=== PATIENT | male | born 1995 | race Caucasian/White ===

== ENCOUNTER 2016-05-10 21:56 | Emergency (ER) | payer OTHER ==
[2016-05-10] MEDS ORDERED: NORCO, ANEXSIA 5/325MG TABLET (HYDROcodone/ACETAMINOPHEN) As Ordered ONE (22:40)
--- NOTE | 2016-05-10 23:37 | EDDOCDS ---
Physician Documentation [facility] Name: Parvez Sorto Age: 20 yrs Sex: Male : 1995 Arrival Date: 05/10/2016 Time: 21:56 Bed TR2 Private MD: GABY Stephen Disposition: 05/10/16 23:22 Discharged to Home/Self Care. Impression: Contusion of right great toe without damage to nail, Sprain of ligaments of thoracic spine. - Condition is Stable. - Discharge Instructions: Back Pain, Adult, Contusion. - Prescriptions for Ibuprofen 600 mg Oral Tablet - take 1 tablet by ORAL route every 6 hours As needed take with food; 30 tablet. Cyclobenzaprine 10 mg Oral Tablet - take 1 tablet by ORAL route 3 times per day As needed; 15 tablet. - Medication Reconciliation, Local Pharmacy Hours form. - Follow up: GABY Stephen; When: 4 - 5 days; Reason: Recheck today's complaints, Continuance of care. - Problem is new. - Symptoms are unchanged. Historical: - Allergies: no known allergies; - Home Meds: 1. none - PMHx: none; - PSHx: none; - Social history: Smoking status: Patient states was never smoker of tobacco. Patient/guardian denies using alcohol, street drugs, No barriers to communication noted, The patient speaks fluent Mongolian, Speaks appropriately for age. - Family history: No immediate family members are acutely ill. - : The pt / caregiver states he / she is not on anticoagulants. Home medication list is obtained from the patient. - Exposure Risk Screening:: None identified. Vital Signs: 05/10 21:57 BP 148 / 76; Pulse 86; Resp 16; Temp 96.0(T); Pulse Ox 97% on R/A; Weight 84.37 kg / lr2 186 lbs (R); Height 5 ft. 7 in. (170.18 cm) (R); Pain 5/10; 23:26 BP 117 / 68; Pulse 63; Resp 18; Temp 99.3(TE); Pulse Ox 98% on R/A; Pain 5/10; cristian 21:57 Body Mass Index 29.13 (84.37 kg, 170.18 cm) lr2 MDM: 22:37 HYDROcodone-acetaminophen 5 mg-325 mg 1 tabs PO once ordered. ke 22:37 Spine, Thoracic 3 Views Ordered. EDMS 22:37 Spine. Lumbosacral, Complete Ordered. EDMS 22:38 Toes Ordered. EDMS Administered Medications: 22:42 Drug: HYDROcodone-acetaminophen 1 tabs [hydrocodone 5 mg-acetaminophen 325 mg tablet (1 mv5 tabs)] Route: PO; Signatures: Dispatcher [employer] EDMS Parag Sauceda RN RN cz Elsner, Karl, FNP BOTTLE CLEANER Augusta Hobson RN RN ttb Vannedery, Megan, RN RN mv5 MTDD
--- NOTE | 2016-05-10 23:37 | EDDOCDS ---
Nurse's Notes [facility] Name: Parvez Sorto Age: 20 yrs Sex: Male : 1995 Arrival Date: 05/10/2016 Time: 21:56 Bed TR2 Private MD: Hailee [facility] Diagnosis: Contusion of right great toe without damage to nail;Sprain of ligaments of thoracic spine Presentation: 05/10 22:02 Presenting complaint: Patient states: dog tripped pt and pt fell down 10 stairs about ttb 30 min ago. Right great toe pain and lower back pain. Denies LOC or head injury. Adult Sepsis Screening: The patient does not have new or worsening altered mentation. Patient's respiratory rate is less than 22. Systolic blood pressure is greater than 100. Patient has a qSOFA score of 0- Negative Sepsis Screen. Suicide/Homicide risk assessment- the patient denies having any suicidal and/or homicidal ideations and does not present with any other emotional, behavioral or mental health complaints. Status: The patient is an active duty customer service rep. Transition of care: patient was not received from another setting of care. 22:02 Acuity: LAKSHMI Level 4 ttb 22:02 Method Of Arrival: Walkin/Carried/Asstd ttb Triage Assessment: 22:04 General: Appears in no apparent distress, well nourished, well groomed, Behavior is ttb appropriate for age, cooperative, pleasant. Pain: Location: lower back and great toe 5/10. Pt Declines HIV testing. Neurological: Level of Consciousness is awake, alert. Cardiovascular: Chest pain is denied. Respiratory: No deficits noted. Airway is patent Denies cough, shortness of breath. GI: Denies nausea, vomiting, pain. Derm: Skin is normal. Musculoskeletal: Range of motion intact in all extremities. Reports pain in lower back and right great toe. Injury Description: pt fell down 10stairs. Historical: - Allergies: no known allergies; - Home Meds: 1. none - PMHx: none; - PSHx: none; - Social history: Smoking status: Patient states was never smoker of tobacco. Patient/guardian denies using alcohol, street drugs, No barriers to communication noted, The patient speaks fluent Tajik, Speaks appropriately for age. - Family history: No immediate family members are acutely ill. - : The pt / caregiver states he / she is not on anticoagulants. Home medication list is obtained from the patient. - Exposure Risk Screening:: None identified. Screenin:43 Screening information is obtained from the patient. Fall risk: No risks identified. mv5 Assistance ADL's: requires no assistance with activities of daily living. Abuse/DV Screen: The patient / caregiver reports he/she is: not in a situation that causes fear, pain or injury. Nutritional screening: No deficits noted. Advance Directives: There is no active DNR order. home support is adequate. Assessment: 22:43 General: Appears in no apparent distress. Pain: Location: dorsum of right foot Pain mv5 currently is 6 out of 10 on a pain scale. Neurological: Level of Consciousness is awake, alert, Oriented to person, place, time. Cardiovascular: Capillary refill < 3 seconds. Respiratory: Airway is patent Respiratory effort is even, unlabored, Respiratory pattern is regular, symmetrical. Derm: Skin is pink, warm & dry. 22:44 General: Pt to xray with design tech.. mv5 23:08 General: Appears in no apparent distress. Respiratory: Airway is patent Respiratory mv5 effort is even, unlabored, Respiratory pattern is regular, symmetrical. Derm: Skin is pink, warm & dry. Vital Signs: 21:57 BP 148 / 76; Pulse 86; Resp 16; Temp 96.0(T); Pulse Ox 97% on R/A; Weight 84.37 kg (R); lr2 Height 5 ft. 7 in. (170.18 cm) (R); Pain 5/10; 23:26 BP 117 / 68; Pulse 63; Resp 18; Temp 99.3(TE); Pulse Ox 98% on R/A; Pain 5/10; cristian 21:57 Body Mass Index 29.13 (84.37 kg, 170.18 cm) lr2 Vitals: 21:57 Log In Time: May 10, 2016 at 21:56. lr2 ED Course: 21:57 Patient visited by Neetu Badillo. lr2 21:57 Patient moved to Waiting lr2 21:58 Hailee [facility] is Private Physician. lr2 21:59 Patient moved to Pre RCE lr2 22:03 Triage Initiated ttb 22:06 Patient visited by Augusta Faria RN. ttb 22:31 Lana Carpio,RN is Primary Nurse. ms18 22:31 Darin Anderson FNP [facility]. ke 22:31 Patient visited by Darin Anderson FNP. ke 22:31 Patient visited by Darin Anderson FNP. ke 22:31 Patient moved to 11 ms18 22:43 The patient / caregiver is instructed regarding the plan of care and ED course. mv5 22:43 No IV's were initiated during this patient's visit. mv5 23:09 Patient visited by Lana Carpoi,MINDY. mv5 23:22 Hailee [facility] is Referral Physician. ke 23:26 Patient visited by Merced Reyes PCA. cristian 23:36 Patient moved to [facility] 23:36 No procedures done that require assistance. cz Administered Medications: 22:42 Drug: HYDROcodone-acetaminophen 1 tabs [hydrocodone 5 mg-acetaminophen 325 mg tablet (1 mv5 tabs)] Route: PO; Order Results: There are currently no results for this order. Outcome: 23:22 Discharge ordered by Provider. ke 23:36 Discharge Assessment: Patient awake, alert and oriented x 3. No cognitive and/or cz functional deficits noted. Patient verbalized understanding of disposition instructions. patient administered narcotics - no. The following High Risk Discharge criteria are identified: None. Discharged to home ambulatory, with significant other. Condition: stable. Discharge instructions given to patient, Instructed on discharge instructions, follow up and referral plans. medication usage, Demonstrated understanding of instructions, medications, Pt was receptive of discharge instructions/ teaching. Prescriptions given X 2. No special radiology studies were completed. Property :Personal belongings accompany Pt. 23:36 Patient left the ED. cz Signatures: Parag Sauceda, RN Darin Carroll FNP FNP Merced Reyes PCA COAL INSPECTOR Augusta Perla RN RN ttShey Dorsey RN RN ms18 Justino Neetu 2 Lana Carpio,MINDY GUILLEN [facility] MTDD
--- NOTE | 2016-05-11 00:51 | REP ---
Clinical: Trauma. Technique: AP, lateral, bilateral oblique views right first toe . Findings: The osseous structures and joint spaces are intact and normal. There is no evidence for acute fracture or dislocation. Surrounding soft tissues are unremarkable. No subcutaneous emphysema or radiodense foreign body. Impression: No acute fracture or dislocation. Signed by Edison Jarrett MD 05/11/2016 12:41 A
--- NOTE | 2016-05-11 00:51 | REP ---
Clinical: thoracic pain. Trauma. Technique: AP, lateral, and swimmers views. Findings: Alignment and kyphosis is maintained. Vertebral bodies intact. No acute fracture / compression injury or subluxation. No degenerative changes. Paravertebral soft tissues are normal. Impression: Normal thoracic spine series. Signed by Edison Jarrett MD 05/11/2016 12:42 A
--- NOTE | 2016-05-11 00:51 | REP ---
Clinical: Trauma . Technique: AP, lateral, bilateral oblique, and coned-down views. Findings: Alignment and lordosis is maintained. The vertebral bodies including transverse process and spinous processes are intact and normal. There is no evidence for acute fracture / compression injury or subluxation. No evidence for spondylolysis or spondylolisthesis. No significant degenerative change is noted. Impression: Normal lumbosacral spine radiograph series. Signed by Edison Jarrett MD 05/11/2016 12:42 A
--- NOTE | 2016-05-13 00:38 | EDDOCDS ---
Physician Documentation [facility] Name: Parvez Sorto Age: 20 yrs Sex: Male : 1995 Arrival Date: 05/10/2016 Time: 21:56 Bed TR2 Private MD: GABY Stephen Disposition: 05/10/16 23:22 Discharged to Home/Self Care. Impression: Contusion of right great toe without damage to nail, Sprain of ligaments of thoracic spine. - Condition is Stable. - Discharge Instructions: Back Pain, Adult, Contusion. - Prescriptions for Ibuprofen 600 mg Oral Tablet - take 1 tablet by ORAL route every 6 hours As needed take with food; 30 tablet. Cyclobenzaprine 10 mg Oral Tablet - take 1 tablet by ORAL route 3 times per day As needed; 15 tablet. - Medication Reconciliation, Local Pharmacy Hours form. - Follow up: GABY Stephen; When: 4 - 5 days; Reason: Recheck today's complaints, Continuance of care. - Problem is new. - Symptoms are unchanged. Historical: - Allergies: no known allergies; - Home Meds: 1. none - PMHx: none; - PSHx: none; - Social history: Smoking status: Patient states was never smoker of tobacco. Patient/guardian denies using alcohol, street drugs, No barriers to communication noted, The patient speaks fluent Kosovan, Speaks appropriately for age. - Family history: No immediate family members are acutely ill. - : The pt / caregiver states he / she is not on anticoagulants. Home medication list is obtained from the patient. - Exposure Risk Screening:: None identified. Vital Signs: 05/10 21:57 BP 148 / 76; Pulse 86; Resp 16; Temp 96.0(T); Pulse Ox 97% on R/A; Weight 84.37 kg / lr2 186 lbs (R); Height 5 ft. 7 in. (170.18 cm) (R); Pain 5/10; 23:26 BP 117 / 68; Pulse 63; Resp 18; Temp 99.3(TE); Pulse Ox 98% on R/A; Pain 5/10; cristian 21:57 Body Mass Index 29.13 (84.37 kg, 170.18 cm) lr2 MDM: 22:37 HYDROcodone-acetaminophen 5 mg-325 mg 1 tabs PO once ordered. ke 22:37 Spine, Thoracic 3 Views Ordered. EDMS 22:37 Spine. Lumbosacral, Complete Ordered. EDMS 22:38 Toes Ordered. EDMS 05/11 01:56 [facility] Payment Agreement was scanned into [employer] and attached to record. hs2 10:29 T-Sheet-- Draft Copy was scanned into [employer] and attached to record. gb Administered Medications: 05/10 22:42 Drug: HYDROcodone-acetaminophen 1 tabs [hydrocodone 5 mg-acetaminophen 325 mg tablet (1 mv5 tabs)] Route: PO; Signatures: Dispatcher [employer] EDMS Parag Sauceda, RN RN cz Chelo Amaya, Reg Reg gb Darin Anderson, HEALTH SPECIALIST HEALTH SPECIALIST Augusta Hobson RN RN ttb Laura Hobbs, Reg Reg hs2 Lana Carpio RN RN mv5 The chart was reviewed and I authenticate all verbal orders and agree with the evaluation and treatment provided.Attachments: 05/11 01:56 [facility] Payment Agreement hs2 10:29 T-Sheet-- Draft Copy gb Chart Complete MTDD
--- NOTE | 2016-05-13 00:38 | EDDOCDS ---
Physician Documentation [facility] Name: Parvez Sorto Age: 20 yrs Sex: Male : 1995 Arrival Date: 05/10/2016 Time: 21:56 Bed TR2 Private MD: GABY Stephen Disposition: 05/10/16 23:22 Discharged to Home/Self Care. Impression: Contusion of right great toe without damage to nail, Sprain of ligaments of thoracic spine. - Condition is Stable. - Discharge Instructions: Back Pain, Adult, Contusion. - Prescriptions for Ibuprofen 600 mg Oral Tablet - take 1 tablet by ORAL route every 6 hours As needed take with food; 30 tablet. Cyclobenzaprine 10 mg Oral Tablet - take 1 tablet by ORAL route 3 times per day As needed; 15 tablet. - Medication Reconciliation, Local Pharmacy Hours form. - Follow up: GABY Stephen; When: 4 - 5 days; Reason: Recheck today's complaints, Continuance of care. - Problem is new. - Symptoms are unchanged. Historical: - Allergies: no known allergies; - Home Meds: 1. none - PMHx: none; - PSHx: none; - Social history: Smoking status: Patient states was never smoker of tobacco. Patient/guardian denies using alcohol, street drugs, No barriers to communication noted, The patient speaks fluent Singaporean, Speaks appropriately for age. - Family history: No immediate family members are acutely ill. - : The pt / caregiver states he / she is not on anticoagulants. Home medication list is obtained from the patient. - Exposure Risk Screening:: None identified. Vital Signs: 05/10 21:57 BP 148 / 76; Pulse 86; Resp 16; Temp 96.0(T); Pulse Ox 97% on R/A; Weight 84.37 kg / lr2 186 lbs (R); Height 5 ft. 7 in. (170.18 cm) (R); Pain 5/10; 23:26 BP 117 / 68; Pulse 63; Resp 18; Temp 99.3(TE); Pulse Ox 98% on R/A; Pain 5/10; cristian 21:57 Body Mass Index 29.13 (84.37 kg, 170.18 cm) lr2 MDM: 22:37 HYDROcodone-acetaminophen 5 mg-325 mg 1 tabs PO once ordered. ke 22:37 Spine, Thoracic 3 Views Ordered. EDMS 22:37 Spine. Lumbosacral, Complete Ordered. EDMS 22:38 Toes Ordered. EDMS 05/11 01:56 [facility] Payment Agreement was scanned into [employer] and attached to record. hs2 10:29 T-Sheet-- Draft Copy was scanned into [employer] and attached to record. gb Administered Medications: 05/10 22:42 Drug: HYDROcodone-acetaminophen 1 tabs [hydrocodone 5 mg-acetaminophen 325 mg tablet (1 mv5 tabs)] Route: PO; Signatures: Dispatcher [employer] EDMS Parag Sauceda, RN RN cz Chelo Amaya, Reg Reg gb Darin Anderson, [employer] Augusta Hobson RN RN ttb Laura Hobbs, Reg Reg hs2 Lana Carpio RN RN mv5 The chart was reviewed and I authenticate all verbal orders and agree with the evaluation and treatment provided.Attachments: 05/11 01:56 [facility] Payment Agreement hs2 10:29 T-Sheet-- Draft Copy gb Chart Complete MTDD
--- NOTE | 2016-05-13 00:39 | EDDOCDS ---
Nurse's Notes [facility] Name: Parvez Sorto Age: 20 yrs Sex: Male : 1995 Arrival Date: 05/10/2016 Time: 21:56 Bed TR2 Private MD: Hailee [facility] Diagnosis: Contusion of right great toe without damage to nail;Sprain of ligaments of thoracic spine Presentation: 05/10 22:02 Presenting complaint: Patient states: dog tripped pt and pt fell down 10 stairs about ttb 30 min ago. Right great toe pain and lower back pain. Denies LOC or head injury. Adult Sepsis Screening: The patient does not have new or worsening altered mentation. Patient's respiratory rate is less than 22. Systolic blood pressure is greater than 100. Patient has a qSOFA score of 0- Negative Sepsis Screen. Suicide/Homicide risk assessment- the patient denies having any suicidal and/or homicidal ideations and does not present with any other emotional, behavioral or mental health complaints. Status: The patient is an active duty business and services instructor. Transition of care: patient was not received from another setting of care. 22:02 Acuity: LAKSHMI Level 4 ttb 22:02 Method Of Arrival: Walkin/Carried/Asstd ttb Triage Assessment: 22:04 General: Appears in no apparent distress, well nourished, well groomed, Behavior is ttb appropriate for age, cooperative, pleasant. Pain: Location: lower back and great toe 5/10. Pt Declines HIV testing. Neurological: Level of Consciousness is awake, alert. Cardiovascular: Chest pain is denied. Respiratory: No deficits noted. Airway is patent Denies cough, shortness of breath. GI: Denies nausea, vomiting, pain. Derm: Skin is normal. Musculoskeletal: Range of motion intact in all extremities. Reports pain in lower back and right great toe. Injury Description: pt fell down 10stairs. Historical: - Allergies: no known allergies; - Home Meds: 1. none - PMHx: none; - PSHx: none; - Social history: Smoking status: Patient states was never smoker of tobacco. Patient/guardian denies using alcohol, street drugs, No barriers to communication noted, The patient speaks fluent Korean, Speaks appropriately for age. - Family history: No immediate family members are acutely ill. - : The pt / caregiver states he / she is not on anticoagulants. Home medication list is obtained from the patient. - Exposure Risk Screening:: None identified. Screenin:43 Screening information is obtained from the patient. Fall risk: No risks identified. mv5 Assistance ADL's: requires no assistance with activities of daily living. Abuse/DV Screen: The patient / caregiver reports he/she is: not in a situation that causes fear, pain or injury. Nutritional screening: No deficits noted. Advance Directives: There is no active DNR order. home support is adequate. Assessment: 22:43 General: Appears in no apparent distress. Pain: Location: dorsum of right foot Pain mv5 currently is 6 out of 10 on a pain scale. Neurological: Level of Consciousness is awake, alert, Oriented to person, place, time. Cardiovascular: Capillary refill < 3 seconds. Respiratory: Airway is patent Respiratory effort is even, unlabored, Respiratory pattern is regular, symmetrical. Derm: Skin is pink, warm & dry. 22:44 General: Pt to xray with neurology technician.. mv5 23:08 General: Appears in no apparent distress. Respiratory: Airway is patent Respiratory mv5 effort is even, unlabored, Respiratory pattern is regular, symmetrical. Derm: Skin is pink, warm & dry. Vital Signs: 21:57 BP 148 / 76; Pulse 86; Resp 16; Temp 96.0(T); Pulse Ox 97% on R/A; Weight 84.37 kg (R); lr2 Height 5 ft. 7 in. (170.18 cm) (R); Pain 5/10; 23:26 BP 117 / 68; Pulse 63; Resp 18; Temp 99.3(TE); Pulse Ox 98% on R/A; Pain 5/10; cristian 21:57 Body Mass Index 29.13 (84.37 kg, 170.18 cm) lr2 Vitals: 21:57 Log In Time: May 10, 2016 at 21:56. lr2 ED Course: 21:57 Patient visited by Neetu Badillo. lr2 21:57 Patient moved to Waiting lr2 21:58 Hailee [facility] is Private Physician. lr2 21:59 Patient moved to Pre RCE lr2 22:03 Triage Initiated ttb 22:06 Patient visited by Augusta Faria RN. ttb 22:31 Lana Carpio,MINDY is Primary Nurse. ms18 22:31 Darin Anderson FNP is [facility]. ke 22:31 Patient visited by Darin Anderson FNP. ke 22:31 Patient visited by Darin Anderson FNP. ke 22:31 Patient moved to 11 ms18 22:43 The patient / caregiver is instructed regarding the plan of care and ED course. mv5 22:43 No IV's were initiated during this patient's visit. mv5 23:09 Patient visited by Lana Carpio RN. mv5 23:22 Hailee [facility] is Referral Physician. ke 23:26 Patient visited by Merced Reyes PCA. cristian 23:36 Patient moved to TR2 cz 23:36 No procedures done that require assistance. cz 23:40 Patient name changed from Parvez\S\\S\Sorto\S\ to Parvez\S\Didier\S\Sorto. EDMS 05/11 01:01 Toes Returned. EDMS 01:01 Spine, Thoracic 3 Views Returned. EDMS 01:01 Spine. Lumbosacral, Complete Returned. EDMS 01:56 [facility] Payment Agreement was scanned into [employer] and attached to record. hs2 10:29 T-Sheet-- Draft Copy was scanned into [employer] and attached to record. gb Administered Medications: 05/10 22:42 Drug: HYDROcodone-acetaminophen 1 tabs [hydrocodone 5 mg-acetaminophen 325 mg tablet (1 mv5 tabs)] Route: PO; Order Results: Radiology Order: Spine, Thoracic 3 Views Test: Spine, Thoracic 3 Views REASON FOR EXAMINATION: Trauma; Clinical: thoracic pain. Trauma.; ; Technique: AP, lateral, and swimmers views.; ; Findings: Alignment and kyphosis is maintained. Vertebral bodies intact. No; acute fracture / compression injury or subluxation. No degenerative changes.; Paravertebral soft tissues are normal.; ; Impression:; Normal thoracic spine series.; ; ; Signed by; Edison Jarrett MD 05/11/2016 12:42 A; Radiology Order: Spine. Lumbosacral, Complete Test: Spine. Lumbosacral, Complete REASON FOR EXAMINATION: Trauma; Clinical: Trauma .; ; Technique: AP, lateral, bilateral oblique, and coned-down views.; ; Findings: Alignment and lordosis is maintained. The vertebral bodies including; transverse process and spinous processes are intact and normal. There is no; evidence for acute fracture / compression injury or subluxation. No evidence for; spondylolysis or spondylolisthesis. No significant degenerative change is; noted.; ; Impression:; Normal lumbosacral spine radiograph series.; ; ; Signed by; Edison Jarrett MD 05/11/2016 12:42 A; Radiology Order: Toes Test: Toes REASON FOR EXAMINATION: Trauma; Clinical: Trauma.; ; Technique: AP, lateral, bilateral oblique views right first toe .; ; Findings: The osseous structures and joint spaces are intact and normal. There; is no evidence for acute fracture or dislocation. Surrounding soft tissues are; unremarkable. No subcutaneous emphysema or radiodense foreign body.; ; Impression:; No acute fracture or dislocation.; ; ; Signed by; Edison Jarrett MD 05/11/2016 12:41 A; Outcome: 23:22 Discharge ordered by Provider. ke 23:36 Discharge Assessment: Patient awake, alert and oriented x 3. No cognitive and/or cz functional deficits noted. Patient verbalized understanding of disposition instructions. patient administered narcotics - no. The following High Risk Discharge criteria are identified: None. Discharged to home ambulatory, with significant other. Condition: stable. Discharge instructions given to patient, Instructed on discharge instructions, follow up and referral plans. medication usage, Demonstrated understanding of instructions, medications, Pt was receptive of discharge instructions/ teaching. Prescriptions given X 2. No special radiology studies were completed. Property :Personal belongings accompany Pt. 23:36 Patient left the ED. cz Signatures: Dispatcher [employer] EDMS Parag Sauceda RN RN cz Barnhardt, Gloria, Reg Reg gb Darin Anderson, REGIONAL AGRONOMIST REGIONAL AGRONOMIST ke Merced Reyes, PHOTO EQUIPMENT TECHNICIAN PHOTO EQUIPMENT TECHNICIAN Augusta Perla RN RN ttb Smith, Mallory, RN RN ms18 Laura Hobbs, Reg Reg hs2 Neetu Badillo lr2 Lana CarpioRN RN mv5 Chart Complete MTDD
== END 2016-05-10 23:36 | disposition home or self-care (01) ==
LOC: M ED 21:56
DX: S33.5XXA Sprain of ligaments of lumbar spine, initial encounter (principal); S23.3XXA Sprain of ligaments of thoracic spine, initial encounter; S90.111A Contusion of right great toe without damage to nail, initial encounter; W10.8XXA Fall (on) (from) other stairs and steps, initial encounter; Y92.018 Other place in single-family (private) house as the place of occurrence of the external cause; Y93.89 Activity, other specified; Y99.8 Other external cause status